=== PATIENT | female | born 1970 | race Caucasian/White ===

== ENCOUNTER 2017-05-14 20:43 | Emergency (ER) | payer MEDICAID ==
[2017-05-14] MEDS ORDERED: Sodium Chloride 0.9% 1,000 ML IV ONE (21:17)
[2017-05-14 21:26] LABS: BASO # 0.1 K/uL (0.0-0.2); BASO % 1.3 % (0.0-2.0); EOS # 0.1 K/uL (0.0-0.7); EOS % 1.3 % (0.0-4.0); HEMOGLOBIN 11.6 g/dL (11.0-16.0); LYMPH # 2.6 K/uL (1.0-4.3); LYMPH % 31.4 % (20.0-40.0); MEAN CELL VOLUME 73.3 fL (81.0-99.0); MEAN CORPUSCULAR HEMOGLOBIN 23.7 pg (27.0-31.0); MEAN CORPUSCULAR HGB CONC 32.4 g/dL (33.0-37.0); MEAN PLATELET VOLUME 8.9 fL (7.2-11.7); MONO # 1.1 K/uL (0.0-0.8); MONO % 13.4 % (0.0-10.0); NEUT # 4.3 K/uL (1.8-7.0); NEUT % 52.6 % (50.0-75.0); RBC 4.88 Mil/uL (3.80-5.20); RED CELL DISTRIBUTION WIDTH 34.2 % (11.5-14.5); WHITE BLOOD COUNT 8.2 K/uL (4.8-10.8)
[2017-05-14 21:38] LABS: ALB/GLOB RATIO 0.9 (1.0-2.1); ALBUMIN 4.1 g/dL (3.5-5.0); ALT/SGPT 72 U/L (9-52); AST/SGOT 46 U/L (14-36); BLOOD UREA NITROGEN 10 mg/dL (7-17); CALCIUM 9.2 mg/dl (8.6-10.4); GFR AFRICAN-AMERICAN > 60; GFR NON-AFRICAN AMERICAN > 60; LIPASE 96 U/L (23-300)
[2017-05-14] MEDS ORDERED: Sodium Chloride 0.9% 1,000 ML ONE (21:38)
[2017-05-14 21:43] LABS: HCG,QUALITATIVE URINE NEGATIVE (NEGATIVE)
[2017-05-14 21:45] LABS: SQUAMOUS EPITHIAL 18 /hpf (0-5); URINE BACTERIA OCC (<OCC); URINE BILIRUBIN NEGATIVE (NEGATIVE); URINE BLOOD NEGATIVE (NEGATIVE); URINE CLARITY Hazy (Clear); URINE COLOR Yellow (YELLOW); URINE GLUCOSE (UA) NORMAL (Normal); URINE LEUKOCYTE ESTERASE TRACE Leu/uL (Negative); URINE PROTEIN NEGATIVE (NEGATIVE); URINE UROBILINOGEN NORMAL mg/dL (0.2-1.0)
[2017-05-14] MEDS ORDERED: Iodixanol 320 MG/ML 100 ML BOTTLE IV ONE (22:12)
--- NOTE | 2017-05-14 23:06 | CT ---
EXAM: CT Abdomen and Pelvis With Intravenous Contrast CLINICAL HISTORY: 47 years old, female; Pain; Abdominal pain; Flank; Right lower quadrant (rlq); Additional info: Right sided pain x 1 month. Lower abd mass. TECHNIQUE: Axial computed tomography images of the abdomen and pelvis with intravenous contrast. All CT scans at this facility use one or more dose reduction techniques, viz.: automated exposure control; ma/kV adjustment per patient size (including targeted exams where dose is matched to indication; i.e. head); or iterative reconstruction technique. Coronal and sagittal reformatted images were created and reviewed. CONTRAST: 100 mL of visipaque 320 administered intravenously. COMPARISON: No relevant prior studies available. FINDINGS: Limitations: Motion artifact - mild to moderate. Lower thorax: Mild cardiomegaly. Minimal atelectasis/scarring. ABDOMEN: Liver: Fatty infiltration. Gallbladder and bile ducts: No calcified stones. No ductal dilation. Pancreas: No ductal dilation. No mass. Spleen: No splenomegaly. Splenules. Adrenals: No mass. Kidneys and ureters: Too small to characterize lesion within RIGHT kidney. No hydronephrosis. Stomach and bowel: No definite mural thickening. No obstruction. Appendix: Normal caliber. No inflammation. PELVIS: Bladder: Unremarkable. Reproductive: Enlarged, lobulated uterus with multiple masses. 2.1 x 2.4 x 2.2 cm hypodense lesion within RIGHT ovary. ABDOMEN and PELVIS: Intraperitoneal space: No significant fluid collection. No free air. Bones/joints: No acute fracture. Soft tissues: Small umbilical hernia containing fat. Vasculature: Unremarkable. No aneurysm. Lymph nodes: No pathologically enlarged lymph nodes. IMPRESSION: 1. Probable RIGHT ovarian cyst. Consider ultrasound. 2. Probable fibroid uterus. 3. Incidental/non-acute findings are described above.
--- NOTE | 2017-05-15 00:20 | US ---
EXAM: US Pelvis Complete, Transabdominal CLINICAL HISTORY: 47 years old, female; Pain; Pelvic pain; Additional info: Right pelvic pain. Pelvic mass. TECHNIQUE: Real-time transabdominal pelvic ultrasound (complete) with image documentation. COMPARISON: CT - ABD PELVIS IV CONTRAST ONLY 2017-05-14 22:24 FINDINGS: Uterus/cervix: Uterus measures 17.5 x 8.0 x 10.1 cm in size. Heterogeneous uterus. Few uterine masses, largest measuring 6.6 x 6.4 x 6.4 cm. Endometrium: 0.7 cm in thickness. Right ovary: 3.5 x 3.2 x 3.1 cm in size. 2.0 x 2.4 x 2.1 cm anechoic lesion. Normal flow. Left ovary: 2.5 x 2.2 x 3.0 cm in size. No mass. Normal flow. Free fluid: No significant free fluid. Bladder: Unremarkable as visualized. IMPRESSION: 1. Probable fibroid uterus. 2. RIGHT ovarian cyst. EXAM: US Pelvis, Transvaginal CLINICAL HISTORY: 47 years old, female; Pain; Pelvic pain; Additional info: Right pelvic pain. Pelvic mass. TECHNIQUE: Real-time transvaginal pelvic ultrasound (complete) with image documentation. Transvaginal imaging was used for better evaluation of the endometrium and adnexa. COMPARISON: CT - ABD PELVIS IV CONTRAST ONLY 2017-05-14 22:24 FINDINGS: Uterus/cervix: Uterus measures 17.5 x 8.0 x 10.1 cm in size. Heterogeneous uterus. Few uterine masses, largest measuring 6.6 x 6.4 x 6.4 cm. Endometrium: 0.7 cm in thickness. Right ovary: 3.5 x 3.2 x 3.1 cm in size. 2.0 x 2.4 x 2.1 cm anechoic lesion. Normal flow. Left ovary: 2.5 x 2.2 x 3.0 cm in size. No mass. Normal flow. Free fluid: No significant free fluid. Bladder: Empty bladder which cannot be evaluated with this probe.
[2017-05-15 00:26] VITALS: BP 120/77; PULSE 77; RESP 18; TEMP 98.1
[2017-05-15 00:28] VITALS: O2SAT 100
--- NOTE | 2017-05-15 00:28 | C.PDOC ---
Time Seen by Provider: 05/14/17 20:58 Chief Complaint (Nursing): Abdominal Pain History Per: Patient, Family Onset/Duration Of Symptoms: Days (about 1 month), Waxing/Waning Current Symptoms Are (Timing): Still Present Severity: Moderate Location Of Pain/Discomfort: RLQ Radiation Of Pain To:: Back Quality Of Discomfort: "Pain" Exacerbating Factors: Movement, Walking Alleviating Factors: None Additional History Per: Prior Records Abnormal Vaginal Bleeding: No Past Medical History Reviewed: Historical Data, Nursing Documentation, Vital Signs Vital Signs: Last Vital Signs Temp 97.7 F 05/14/17 20:53 Pulse 84 05/14/17 20:53 Resp 20 05/14/17 20:53 BP 129/81 05/14/17 20:53 Pulse Ox 100 05/14/17 20:53 - Medical History PMH: No Chronic Diseases Surgical History: No Surg Hx Family History: States: Unknown Family Hx - Social History Hx Alcohol Use: No Hx Substance Use: No Review Of Systems Except As Marked, All Systems Reviewed And Found Negative. Constitutional: Negative for: Fever, Weakness Cardiovascular: Negative for: Chest Pain Respiratory: Negative for: Shortness of Breath Gastrointestinal: Positive for: Abdominal Pain. Negative for: Vomiting, Diarrhea Genitourinary: Negative for: Dysuria, Vaginal Discharge, Vaginal Bleeding Musculoskeletal: Positive for: Back Pain. Negative for: Neck Pain, Leg Pain Skin: Negative for: Rash Neurological: Negative for: Weakness, Numbness Physical Exam - Physical Exam Appears: Non-toxic, No Acute Distress Skin: Normal Color, Warm, Dry, No Rash Head: Atraumatic, Normacephalic Eye(s): bilateral: Normal Inspection, PERRL, EOMI Neck: Normal ROM, Supple Cardiovascular: Rhythm Regular Respiratory: Normal Breath Sounds, No Accessory Muscle Use Gastrointestinal/Abdominal: Soft, Tenderness (right sided), Mass (suprapubic), No Guarding, No Rebound Back: No CVA Tenderness Extremity: Normal ROM, No Pedal Edema, No Calf Tenderness Neurological/Psych: Oriented x3, Normal Motor, Normal Sensation ED Course And Treatment - Laboratory Results Result Diagrams: 05/14/17 21:23 05/14/17 21:23 Lab Interpretation: No Acute Changes Urine POC: Negative O2 Sat by Pulse Oximetry: 100 Pulse Ox Interpretation: Normal - CT Scan/US CT abd/pelv Other Rad Studies (CT/US): Read By Radiologist, Radiology Report Reviewed CT/US Interpretation: IMPRESSION: 1. Probable RIGHT ovarian cyst. Consider ultrasound. 2. Probable fibroid uterus. 3. Incidental/non-acute findings are described above. Pelvic US Other Rad Studies (CT/US): Read By Radiologist, Radiology Report Reviewed CT/US Interpretation: IMPRESSION: 1. Probable fibroid uterus. 2. RIGHT ovarian cyst. Progress - Interventions Interventions:: Observation, Intravenous fluid - Medications Administered Intravenous: H-2 sandrita, NSAID - Data Reviewed Data Reviewed: Lab, Diagnostic imaging, Old records - Patient Status Patient status: Mostly improved - Continuity of Care Discussed patient case with:: Patient, Family-HIPPA compliant, ED Nurse - Patient Plan Patient Plan: Discharge, F/U with PCP Disposition Counseled Patient/Family Regarding: Studies Performed, Diagnosis, Need For Followup, Rx Given - [facility] Disposition: HOME/ ROUTINE Disposition Time: 00:31 Condition: IMPROVED Additional Instructions: Follow up with a Government Professor for further evaluation and treatment. Return to the ER if you develop fever, vomiting, heavy bleeding, worsening of symptoms or if you have any other concerns. Prescriptions: Ibuprofen [Motrin Tab] 600 mg PO Q8 PRN #30 tab PRN Reason: Pain, Moderate (4-7) Instructions: Uterine Fibroids (DC), Ovarian Cyst (DC) Forms: [employer] [facility] [employer] (Stateless), Gen Discharge Inst Stateless Print Language: DANISH - Clinical Impression Clinical Impression: Right ovarian cyst, Fibroid uterus
== END 2017-05-15 00:53 | disposition home or self-care (01) ==
LOC: C.ER 20:43
DX: N83.201 Unspecified ovarian cyst, right side (principal); D25.9 Leiomyoma of uterus, unspecified
CPT/HCPCS: 74177; 76830; 76856; 80053; 81001; 83690; 84703; 85025; 96361; 96374; 96375; 99285; J1885; J7040; Q9967